=== PATIENT | male | born 1985 | race Caucasian/White ===

== ENCOUNTER 2021-02-06 13:00 | Outpatient (RCR) | payer SELFPAY ==
--- NOTE | 2021-04-09 15:14 | HP.PT.NRP ---
DEBBIE BOLIVAR RADHA was seen in my office for initial evaluation on . The following Plan of Care was established for this patient: This patient was last seen in our office 02/06/21. Pertinent comments regarding their Physical therapy will appear below: Pt. was seen in PT for self pay DN. He has not been seen in ~ 2 months and will be DC from PT at this point in time. At this point I will be discontinuing this patient from physical therapy. I would be happy to see this patient again in the future if found appropriate by the physician. Thank you! Dannie Jimenez, FREDYT
== END 2021-02-06 19:00 | disposition home or self-care (01) ==
LOC: PT 13:00
DX: R69 Illness, unspecified (principal)